=== PATIENT | male | born 1980 | race Caucasian/White ===

== ENCOUNTER → 2017-01-27 | Outpatient (CLI) | payer BC ==
[2017-01-27 14:21] LABS: BASO % 0.4 %; BASO ABS # 0.03 K/uL (0-0.2); COMPLETE YES; EOS % 11.5 %; HEMATOCRIT 42.9 % (42-52); IG% 0.1 %; LYMPH % 39.2 %; LYMPH ABS # 3.03 K/uL (1.2-3.4); MEAN CELL VOLUME 88.1 fL (80-100); MEAN CORPUSCULAR HEMOGLOBIN 31.6 pg (25-34); MEAN CORPUSCULAR HGB CONC 35.9 g/dl (32-36); MEAN PLATELET VOLUME 9.7 fL (7.4-10.4); MONO % 6.5 %; NEUT % 42.3 %; PLATELET COUNT 279 K/uL (130-400); RED BLOOD COUNT 4.87 M/uL (4.7-6.1); WHITE BLOOD COUNT 7.72 K/uL (4.8-10.8)
[2017-01-27 14:26] LABS: ALT/SGPT 24 U/L (12-78); BLOOD UREA NITROGEN 10 mg/dl (7-18); CARBON DIOXIDE 31 mmol/L (21-32); CHLORIDE 107 mmol/L (98-107); GLUCOSE 75 mg/dl (70-99); POTASSIUM 4.3 mmol/L (3.5-5.1); SODIUM 140 mmol/L (136-145)
[2017-01-27 14:36] LABS: ALB/GLOB RATIO 1.3 (0.9-2); ALKALINE PHOSPHATASE 62 U/L (45-117); AST/SGOT 16 U/L (15-37)
[2017-01-27 14:41] LABS: ESTIMATED AVERAGE GLUCOSE 97 mg/dl; HA1C FLAG Normal (Normal)
== END | disposition home or self-care (01) ==
LOC: C.LABSPEC 13:31
PROVIDERS: ATTEND Family Medicine
DX: R63.4 Abnormal weight loss (principal); H53.8 Other visual disturbances

== ENCOUNTER → 2017-02-27 | Outpatient (CLI) | payer BC ==
[2017-02-27 13:58] LABS: BASO % 0.3 %; BASO ABS # 0.02 K/uL (0-0.2); COMPLETE YES; EOS % 10.5 %; HEMATOCRIT 45.4 % (42-52); IG% 0.2 %; MEAN CELL VOLUME 88.3 fL (80-100); MEAN CORPUSCULAR HGB CONC 33.9 g/dl (32-36); MEAN PLATELET VOLUME 9.7 fL (7.4-10.4); MONO % 6.1 %; NEUT % 41.9 %; PLATELET COUNT 321 K/uL (130-400); RED BLOOD COUNT 5.14 M/uL (4.7-6.1)
[2017-02-27 14:43] LABS: LYME DISEASE AB IGG NEG (NEG); LYME DISEASE AB IGM NEG (NEG)
== END | disposition home or self-care (01) ==
LOC: C.LABSPEC 13:17
PROVIDERS: ATTEND Family Medicine
DX: R53.83 Other fatigue (principal)

== ENCOUNTER 2017-07-19 14:36 | Emergency (ER) | payer BC ==
[~2017-07-19] VITALS: Ht 180.3 cm; Wt 73.6 kg
[2017-07-19 14:39] VITALS: TEMP 36.5; Ht 180.3 cm; Wt 73.6 kg
[2017-07-19] MEDS ORDERED: ONDANSETRON INJ 2 MG/ML 2 ML VIAL IV STA (14:52)
[2017-07-19] MEDS ORDERED: GI COCKTAIL PO STA (14:52)
[2017-07-19] MEDS ORDERED: FAMOTIDINE 20MG/5ML IV PUSH IV STA (14:52)
[2017-07-19] MEDS ORDERED: SODIUM CHLORIDE 0.9% 1000ML 1,000 ML IV STA (14:52)
--- NOTE | 2017-07-19 14:59 | EMERGENCY ROOM VISIT NOTE ---
History Report prepared by Sameer: Lawrence Grayson Under the Supervision of: Dr. Julian Hopper M.D. First contact with patient: 14:42 Chief Complaint: CHEST PAIN Stated Complaint: VOMITING,AND SEVERE CHEST PAINS SOB History of Present Illness The patient is a 36 year old male who presents to the Emergency Room with complaints of constant chest pain that began at 0100. He rates his pain as a 3/ 10 in severity The patient states that he was sleeping when his chest pain woke him up. He reports that he was unable to move due to the pain. The patient reports that he became short of breath and vomited after the chest pain started. The patient states that he has had chest pains in the past that he reports was due to acid reflux. He reports that his current chest pain is not similar to his acid reflux chest pain because it is more severe. The patient denies fevers, chills, cough, congestion, diarrhea, rhinorrhea, smoking, suicidal or homicidal ideation, and recent travel. The patient reports that he does occasionally drink alcohol. The patient states that he has been stressed recently due to a break up, but denies any recent increased stress in the last three weeks and thinking about it before the chest pain began. He denies a personal history of cancer, blood clots, anxiety, panic attacks, and diabetes. The patient reports that he had a history of hypertension, but admits that this has been resolving. He states that he has a family history of heart problems, including his grandfather dying from heart disease. Source of History: patient Onset: 0100 Position: chest Symptom Intensity: 3/10 Timing: constant Associated Symptoms: + SOB, + vomiting, No fevers, No chills, No cough, No diarrhea Review of Systems See HPI for pertinent positives and negatives. A total of ten systems were reviewed and were otherwise negative. Past Medical & Surgical Medical Problems: (1) Acid reflux (2) HTN (hypertension) Family History Heart disease Social History Smoking Status: Never Smoker Smokeless Tobacco Use: No Alcohol Use: occasionally Drug Use: none Marital Status: single Occupation Status: employed Current/Historical Medications No Active Prescriptions or Reported Meds Allergies Coded Allergies: No Known Allergies (Unverified , 07/19/17) Physical Exam Vital Signs Date Time Temp Pulse Resp B/P (MAP) Pulse Ox O2 Delivery O2 Flow Rate FiO2 07/19/17 17:07 81 20 142/91 98 07/19/17 14:56 86 07/19/17 14:39 36.5 100 16 143/94 98 Room Air Physical Exam GENERAL: Awake, alert, anxious appearing, in no distress HENT: Normocephalic, atraumatic. Oropharynx unremarkable. EYES: Normal conjunctiva. Sclera non-icteric. NECK: Supple. No nuchal rigidity. FROM. No JVD. RESPIRATORY: Clear to auscultation. CARDIAC: Regular rate, normal rhythm. Extremities warm and well perfused. Pulses equal. ABDOMEN: Soft, non-distended. No tenderness to palpation. No rebound or guarding. No masses. RECTAL: Deferred. MUSCULOSKELETAL: Chest examination reveals no tenderness. The back is symmetrical on inspection without obvious abnormality. There is no CVA tenderness to palpation. No joint edema. LOWER EXTREMITIES: Calves are equal size bilaterally and non-tender. No edema. No discoloration. NEURO: Normal sensorium. No sensory or motor deficits noted. SKIN: No rash or jaundice noted. Medical Decision & Procedures ER Provider Diagnostic Interpretation: X-ray: Per my interpretation, radiologist review. CHEST ONE VIEW PORTABLE CLINICAL HISTORY: CHEST PAIN COMPARISON STUDY: No previous studies for comparison. FINDINGS: Lung volumes are normal. No pneumothorax or pleural effusion is noted. Pulmonary vascularity is normal. Cardiomediastinal silhouette is normal. No consolidation is identified. IMPRESSION: No acute cardiopulmonary findings. Electronically signed by: Jm Li M.D. 07/19/2017 3:21 PM Dictated Date/Time: 07/19/2017 3:20 PM Laboratory Results 07/19/17 14:50 Red Blood Count 4.99, Mean Corpuscular Volume 89.8, Mean Corpuscular Hemoglobin 31.5, Mean Corpuscular Hemoglobin Concent 35.0, Mean Platelet Volume 9.3, Neutrophils (%) (Auto) 75.5, Lymphocytes (%) (Auto) 12.4, Monocytes (%) (Auto) 7.5, Eosinophils (%) (Auto) 4.3, Basophils (%) (Auto) 0.1, Neutrophils # (Auto) 6.97, Lymphocytes # (Auto) 1.14, Monocytes # (Auto) 0.69, Eosinophils # (Auto) 0.40, Basophils # (Auto) 0.01 07/19/17 14:50 Test 07/19/17 14:50 White Blood Count 9.23 K/uL (4.8-10.8) Red Blood Count 4.99 M/uL (4.7-6.1) Hemoglobin 15.7 g/dL (14.0-18.0) Hematocrit 44.8 % (42-52) Mean Corpuscular Volume 89.8 fL (80-100) Mean Corpuscular Hemoglobin 31.5 pg (25-34) Mean Corpuscular Hemoglobin Concent 35.0 g/dl (32-36) Platelet Count 278 K/uL (130-400) Mean Platelet Volume 9.3 fL (7.4-10.4) Neutrophils (%) (Auto) 75.5 % Lymphocytes (%) (Auto) 12.4 % Monocytes (%) (Auto) 7.5 % Eosinophils (%) (Auto) 4.3 % Basophils (%) (Auto) 0.1 % Neutrophils # (Auto) 6.97 K/uL (1.4-6.5) Lymphocytes # (Auto) 1.14 K/uL (1.2-3.4) Monocytes # (Auto) 0.69 K/uL (0.11-0.59) Eosinophils # (Auto) 0.40 K/uL (0-0.5) Basophils # (Auto) 0.01 K/uL (0-0.2) RDW Standard Deviation 40.8 fL (36.4-46.3) RDW Coefficient of Variation 12.6 % (11.5-14.5) Immature Granulocyte % (Auto) 0.2 % Immature Granulocyte # (Auto) 0.02 K/uL (0.00-0.02) Anion Gap 4.0 mmol/L (3-11) Est Creatinine Clear Calc Drug Dose 102.2 ml/min Estimated GFR () 105.6 Estimated GFR (Non- 91.1 BUN/Creatinine Ratio 11.1 (10-20) Calcium Level 8.9 mg/dl (8.5-10.1) Total Bilirubin 3.1 mg/dl (0.2-1) Direct Bilirubin 0.3 mg/dl (0-0.2) Aspartate Amino Transf (AST/SGOT) 15 U/L (15-37) Alanine Aminotransferase (ALT/SGPT) 20 U/L (12-78) Alkaline Phosphatase 77 U/L (45-117) Troponin I < 0.015 ng/ml (0-0.045) Total Protein 7.3 gm/dl (6.4-8.2) Albumin 4.1 gm/dl (3.4-5.0) Lipase 97 U/L (73-393) Laboratory results reviewed by me Medications Administered Medications (Trade) Dose Ordered Sig/Tanvir Route Start Time Stop Time Status Last Admin Dose Admin Famotidine (Pepcid 20mg Iv Push) 20 mg NOW STAT IV 07/19/17 14:52 07/19/17 14:55 DC 07/19/17 15:09 20 MG Ondansetron HCl (Zofran Inj) 4 mg NOW STAT IV 07/19/17 14:52 07/19/17 14:55 DC 07/19/17 15:09 4 MG Sodium Chloride 1,000 ml @ 999 mls/hr Q1H1M STAT IV 07/19/17 14:52 07/19/17 15:52 DC 07/19/17 15:12 999 MLS/HR Al Hydroxide/Mg Hydroxide (Maalox Susp) 30 ml STK-MED ONCE .ROUTE 07/19/17 15:05 07/19/17 15:06 DC 07/19/17 15:09 30 ML Lidocaine HCl (Viscous Lidocaine 2% Soln) 20 ml STK-MED ONCE .ROUTE 07/19/17 15:05 07/19/17 15:06 DC 07/19/17 15:10 10 ML ECG Indication: chest pain Rate (beats per minute): 86 Rhythm: normal sinus Findings: no acute ischemic change, other (Normal axis, Negative Spodick's) ED Course 1445: The patient was evaluated in room A02. A complete history and physical exam was performed. 1641: I reevaluated the patient. Discussed results and discharge instructions: He verbalized understanding and agreement. The patient is ready for discharge. Medical Decision I reviewed the patient's past medical history, medications, and the nursing notes as described above. The patient's presentation and history were concerning for anxiety, depression, ACS, pneumonia, bronchitis, PE, pericarditis, myocarditis, gastritis, and reflux.. Patient is a 36-year-old gentleman who presents to emergency department with constant chest pain since this morning with associated nausea and shortness of breath per hpi. Of note the patient reports prior episodes in the past though not as severe that were determined to be reflux by his doctor. She denies any history of anxiety and depression however does report that he has been feeling down and stressed since breaking up with his fiance 3 weeks ago. He denies any excessive dwelling on these feelings this morning. On arrival the patient is anxious appearing but in no acute distress, afebrile stable vital signs. EKG is unremarkable without SUMA or PRD suggest pericarditis. Also negative Spodicks sign. Labs unremarkable including troponin negative in the setting of constant symptoms making ACS unlikely. Patient appears clinically dry, heart rate low 100s improved to 80s with IV fluids. Therefore given patient is not hypoxic PE not likely. Chest x-ray negative with normal mediastinum. Patient reports no change after IV pepcid and GI cocktail. Sx most likely 2/2 patient's stress related to his recent break-up. Findings and plan for follow-up reviewed with patient. Patient agreeable and d/c'd per discharge instructions. Medication Reconcilliation Current Medication List: was personally reviewed by me Blood Pressure Screening Patient's blood pressure: Elevated blood pressure Blood pressure disposition: Elevated BP felt to be situational Impression Primary Impression: Substernal precordial chest pain Scribe Attestation The scribe's documentation has been prepared under my direction and personally reviewed by me in its entirety. I confirm that the note above accurately reflects all work, treatment, procedures, and medical decision making performed by me. Departure Information Dispostion Home / Self-Care Prescriptions No Active Prescriptions or Reported Meds Referrals No Doctor, Assigned (PCP) Patient Instructions Anxiety Body Response, ED Chest Pain Atypical Unkn Cause, ED Grief Reaction, My [facility] Additional Instructions Please follow up with your primary care physician in the next 1-3 days for re- evaluation. The cause of your symptoms are unclear at this time but may be due to stress and anxiety from your recent break-up. Seek help if needed to process this further. Otherwise, your exam, EKG, chest xray, and lab results did not show signs of an emergent condition at this time. Return to the emergency department for worsening symptoms as described in the accompanying instructions.
[2017-07-19] MEDS ORDERED: LIDOCAINE HCL 2% VISC SOLN 20 ML UDC ONE (15:05)
[2017-07-19] MEDS ORDERED: ALUMINUM/MAGNESIUM SUSP 30 ML UDC ONE (15:05)
[2017-07-19 15:19] LABS: ALBUMIN 4.1 gm/dl (3.4-5.0); ALT/SGPT 20 U/L (12-78); AST/SGOT 15 U/L (15-37); BLOOD UREA NITROGEN 12 mg/dl (7-18); CALCIUM 8.9 mg/dl (8.5-10.1); CARBON DIOXIDE 31 mmol/L (21-32); CREATININE 1.06 mg/dl (0.60-1.40); GLUCOSE 74 mg/dl (70-99); LIPASE 97 U/L (73-393); POTASSIUM 3.8 mmol/L (3.5-5.1); SODIUM 138 mmol/L (136-145)
[2017-07-19 15:21] LABS: BASO % 0.1 %; BASO ABS # 0.01 K/uL (0-0.2); EOS % 4.3 %; HEMATOCRIT 44.8 % (42-52); HEMOGLOBIN 15.7 g/dL (14.0-18.0); IG# 0.02 K/uL (0.00-0.02); LYMPH % 12.4 %; LYMPH ABS # 1.14 K/uL (1.2-3.4); MEAN CELL VOLUME 89.8 fL (80-100); MEAN CORPUSCULAR HEMOGLOBIN 31.5 pg (25-34); MEAN PLATELET VOLUME 9.3 fL (7.4-10.4); MONO % 7.5 %; MONO ABS # 0.69 K/uL (0.11-0.59); NEUT % 75.5 %; NEUT ABS # 6.97 K/uL (1.4-6.5); PLATELET COUNT 278 K/uL (130-400); RED CELL DISTRIBUTION WIDTH CV 12.6 % (11.5-14.5); RED CELL DISTRIBUTION WIDTH SD 40.8 fL (36.4-46.3); WHITE BLOOD COUNT 9.23 K/uL (4.8-10.8)
--- NOTE | 2017-07-19 15:22 | DIAGNOSTIC IMAGING REPORT ---
CHEST ONE VIEW PORTABLE CLINICAL HISTORY: CHEST PAIN COMPARISON STUDY: No previous studies for comparison. FINDINGS: Lung volumes are normal. No pneumothorax or pleural effusion is noted. Pulmonary vascularity is normal. Cardiomediastinal silhouette is normal. No consolidation is identified. IMPRESSION: No acute cardiopulmonary findings. Electronically signed by: Jm Li M.D. 07/19/2017 3:21 PM Dictated Date/Time: 07/19/2017 3:20 PM
[2017-07-19 15:24] LABS: ALKALINE PHOSPHATASE 77 U/L (45-117); TOTAL PROTEIN 7.3 gm/dl (6.4-8.2)
[2017-07-19 17:07] VITALS: BP 142/91; PULSE 81; O2SAT 98
== END 2017-07-19 17:08 | disposition home or self-care (01) ==
LOC: C.EDB 14:37 → C.EDA 17:08
DX: R07.2 Precordial pain (principal); I10 Essential (primary) hypertension; K21.9 Gastro-esophageal reflux disease without esophagitis